=== PATIENT | female | born 1950 | race Caucasian/White ===

== ENCOUNTER → 2016-11-06 | Day surgery (SDC) | payer MEDICARE, BC ==
[~2016-11-06] MED LIST: ATORVASTATIN CA10 MG PO; B12 PO; CALCIUM + VITAM1 TAB PO; CALCIUM 600 + D1 TAB PO; CALCIUM 600 +1 EAC3 PO; CLOBEX59 ML TOP; CO Q-10150 MG PO; CO Q10200 MG PO; COUMADIN5 MG PO; CRESTOR10 MG PO; FEOSOL PO; FISH OIL 1,2001 EAC3 PO; FISH OIL 1,2001 EACH PO; GABAPENTIN300 MG PO; HALOBETASOL; LAMISIL PO; LEVAQUIN PO; LEVOTHYROXINE75 MC1 PO; LOCOID 0.1% LIP45 GM PO; LOCOID 0.1% LIP45 GM TOP; LOVENOX SUBQ; NUCYNTA50 MG PO; OCUVITE SOFTGEL1 CA1 PO; PRAVASTATIN SOD20 MG PO; PREMARIN VAGINAL; PROMETHAZI6.25 MG/5; SYNTHROID PO; TEMOVATE 0.05%15 G1 TOP; VANOS60 GM TOP; VIT B 12 PO; VIT B-12 PO; VITAMIN B-121000 MC2 PO
== END | disposition home or self-care (01) ==
LOC: CCSC 10:03
DX: M54.5 Low back pain (principal); E03.9 Hypothyroidism, unspecified; M19.90 Unspecified osteoarthritis, unspecified site; Z87.01 Personal history of pneumonia (recurrent); Z96.643 Presence of artificial hip joint, bilateral; Z96.653 Presence of artificial knee joint, bilateral; Z90.711 Acquired absence of uterus with remaining cervical stump; Z90.89 Acquired absence of other organs; Z88.5 Allergy status to narcotic agent; Z88.6 Allergy status to analgesic agent; Z53.8 Procedure and treatment not carried out for other reasons
CPT/HCPCS: J1040; J2250

== ENCOUNTER → 2016-11-08 | Day surgery (SDC) | payer MEDICARE, BC ==
--- NOTE | ~2016-11-08 | OR ---
Unit #: [id number] #: [id number] Patient: LYNNE SR [id number] [address] [address] [id number] O MR#: [id number] NAME: LYNNE SR ROOM: Date of Procedure: 11/08/2016 Admission Date: 11/08/2016 Surgeon: Trevor Juarez M.D. : 1950 Attending Physician: Trevor Juarez M.D. Primary Care Physician: Leo Rich Jr., M.D. SUR[facility] CENTER OPERATIVE NOTE PROCEDURE PERFORMED Trigger point injections, right flank/paraspinous area x4. PREOPERATIVE DIAGNOSIS Right paraspinous trigger points x4. INDICATIONS FOR PROCEDURE The patient presents today with a history of at least one episode of trigger point formation following physical exertion occurring approximately 2 years ago. At that point, she was successfully treated with trigger point injections after failing conservative measures. She presents today with a similar complaint. She has failed conservative measures of medication and presents requesting trigger point injections. DESCRIPTION OF PROCEDURE After discussing risks and benefits of proceeding today with trigger point injections, the patient was placed into the prone position and had 4 trigger points palpated in the right paraspinous flank area. Following successful location of these 4 trigger points, the patient received an injectate in equal amounts at each location of a total injectate containing 4 mL of 1% lidocaine, 4 mL of 0.25% bupivacaine, and 80 mg of methylprednisolone. She tolerated this procedure well. She was discharged home with followup instructions, which include return to this clinic as needed in the future. Dictated by... Michelle Vidales/modl TD: 11/08/2016 23:00 JOB #: [id number] CC: Anand Mart M.D. Unit #: [id number] #: [id number] Patient: LYNNE SR SUR[facility]ENTER OPERATIVE NOTE Page 1 of 1 X Karan Juarez MD PROCEDURE OPERATIVE NOTE
== END | disposition home or self-care (01) ==
LOC: CCSC 08:20
DX: M54.5 Low back pain (principal); M19.90 Unspecified osteoarthritis, unspecified site; Z87.01 Personal history of pneumonia (recurrent); Z88.6 Allergy status to analgesic agent; Z91.048 Other nonmedicinal substance allergy status; Z96.643 Presence of artificial hip joint, bilateral
CPT/HCPCS: J1040

== ENCOUNTER → 2016-12-25 | Day surgery (SDC) | payer MEDICARE, BC ==
--- NOTE | ~2016-12-25 | OR ---
Unit #: [id number] #: [id number] Patient: LYNNE SR [id number] [address] [address] [id number] O MR#: [id number] NAME: LYNNE SR ROOM: Date of Procedure: 12/25/2016 Admission Date: 12/25/2016 Surgeon: Trevor Juarez M.D. : 1950 Attending Physician: Karan Juarez Primary Care Physician: Leo Rich Jr., M.D. SUR[facility] CENTER OPERATIVE NOTE PROCEDURE PERFORMED Lumbar epidural steroid injection under x-ray guided needle placement. PREOPERATIVE DIAGNOSES 1. Acute lumbar radiculitis. 2. Spinal stenosis, lumbosacral spine. 3. Herniated disk, lumbosacral spine. 4. Degenerative joint disease, lumbosacral spine. 5. Degenerative disk disease, lumbosacral spine. INDICATIONS FOR PROCEDURE The patient presents today with longstanding history of chronic right-sided radicular pain secondary to her underlying degenerative processes. She is generally fairly well managed medically with ongoing continuous conservative therapy, but has on occasion experience an exacerbation which required an epidural steroid injection to resolve. She is currently experiencing just such an exacerbation with multiple weeks history of increasing pain in a crescendo pattern. It has begun to negatively impact her activities of daily living. She presents today requesting an epidural steroid injection. After discussing risks and benefits of proceeding today with a lumbar approach epidural steroid injection, the patient agreed this would be the appropriate course of action. We also scheduled her for followup on 01/15/2017. DESCRIPTION OF PROCEDURE Following these discussions, the patient was taken to the operating room, where she was prepped and draped in sterile manner. Standard monitors were applied. She refused all forms of sedation and lumbar epidural space accessed at the L3-L4 level using loss of resistance technique and x-ray guidance. Needle placement was confirmed with injection of 2 mL of Omnipaque. There was good superior and inferior flow at this L3-L4 level placement. Following successful needle placement confirmation, the patient received an injectate containing 4 mL normal saline and 80 mg of methylprednisolone. She tolerated this procedure well. She was discharged home with followup instructions, which include return dates as described above. Dictated by... Trevor Juarez M.D. JRG/modshanae Unit #: [id number] #: [id number] Patient: LYNNE SR TD: 12/26/2016 02:40 JOB #: [id number] CC: Anand Mart M.D. SUR[facility]ERY CENTER OPERATIVE NOTE Page 1 of 1 X Karan Juarez MD PROCEDURE OPERATIVE NOTE
== END | disposition home or self-care (01) ==
LOC: CCSC 08:00
DX: M51.17 Intervertebral disc disorders with radiculopathy, lumbosacral region (principal); M47.27 Other spondylosis with radiculopathy, lumbosacral region; M48.07 Spinal stenosis, lumbosacral region; Z96.643 Presence of artificial hip joint, bilateral; Z96.653 Presence of artificial knee joint, bilateral; Z90.711 Acquired absence of uterus with remaining cervical stump
CPT/HCPCS: J1040; J2250

== ENCOUNTER → 2017-01-15 | Day surgery (SDC) | payer MEDICARE, BC ==
--- NOTE | ~2017-01-15 | OR ---
Unit #: [id number] #: [id number] Patient: LYNNE SR [id number] [address] [address] [id number] O MR#: [id number] NAME: LYNNE SR. ROOM: Date of Procedure: 01/15/2017 Admission Date: 01/15/2017 Surgeon: Trevor Juarez M.D. : 1950 Attending Physician: Karan Juarez Primary Care Physician: Leo Rich Jr., M.D. SUR[facility] CENTER OPERATIVE NOTE PROCEDURE PERFORMED Trigger point injections x3, right flank, paraspinous muscles. PREOPERATIVE DIAGNOSES Trigger points x3, right flank, L3-4, L4-L5, L5-S1 paraspinous muscles. INDICATIONS FOR PROCEDURE The patient presents today with longstanding history of chronic recurrent trigger point in her right lower back region. These have been successfully treated in the past with trigger point injections. She presents today with a month's long history of increasing muscular spasm along her right side of her lower spine, which has variously respond to conservative measures; but over the course of the past 4 to 6 weeks, it has begun to failed to respond to medicines and self driven physical therapy/exercise. She presents today requesting trigger point injections. Three trigger points were palpated in the area she described of her right lower back. DESCRIPTION OF PROCEDURE Following this, she was prepped and draped in a sterile manner. Standard monitors were applied. She refused all forms of sedation and the 3 trigger points were injected in equal amounts with a hypodermic needle containing a 25-gauge needle and injectate containing a total of 5 mL of 2% lidocaine, 6 mL of 0.25% bupivacaine, and 80 mg of methylprednisolone. She tolerated this procedure well. She was discharged home with followup instructions, which include an offer to return to this clinic on a p.r.n. basis. Dictated by... Michelle Vidales/nba TD: 01/15/2017 23:53 JOB #: [id number] Unit #: [id number] #: [id number] Patient: LYNNE SR [facility] OPERATIVE NOTE Page 1 of 1 X Karan Juarez MD PROCEDURE OPERATIVE NOTE
== END | disposition home or self-care (01) ==
LOC: CCSC 12:32
DX: M62.830 Muscle spasm of back (principal); E03.9 Hypothyroidism, unspecified; Z87.01 Personal history of pneumonia (recurrent); M19.90 Unspecified osteoarthritis, unspecified site; Z88.6 Allergy status to analgesic agent; Z91.048 Other nonmedicinal substance allergy status; Z79.899 Other long term (current) drug therapy; Z96.643 Presence of artificial hip joint, bilateral; Z96.653 Presence of artificial knee joint, bilateral; Z90.710 Acquired absence of both cervix and uterus; Z98.890 Other specified postprocedural states
CPT/HCPCS: J1040